=== PATIENT | female | born 1940 | race Caucasian/White ===

== ENCOUNTER 2025-03-26 11:42 | Emergency (ER) | payer MEDICARE ==
--- NOTE | 2025-03-26 12:19 | ED ---
General Adult HPI - General Chief complaint: Shortness of Breath Stated complaint: SOB Time Seen by Provider: 03/26/25 12:00 Source: patient, RN notes reviewed, old records reviewed Mode of arrival: ambulatory Limitations: no limitations - History of Present Illness Initial comments: This is an 85-year-old female who presents to the emergency department stating she has been coughing for 10 days. Patient states only thing she coughs up is clear fluid. Patient denies shortness of breath patient denies chest pain. Patient denies any recent fever. Patient states on the sixth she went to urgent care and they gave her Zithromax steroids and an albuterol inhaler and then after that she was given a different antibiotic I believe doxycycline. Patient states she continues to cough and she came in today because of the cough. Patient denies any palpitations. Patient has no sharp chest pain. Patient is not short of breath. - Related Data Previous Rx's Medication Instructions Recorded Benzonatate [Tessalon Perle] 200 mg PO Q8H #21 cap 03/26/25 Allergies Allergy/AdvReac Type Severity Reaction Status Date / Time celecoxib [From Celebrex] Allergy Rash/Hives Verified 03/26/25 12:02 nitrofurantoin Allergy Rapid Verified 03/26/25 12:02 [From Macrobid] Heart Rate [id number]-[id number]-AjL Reductase Allergy Unknown Verified 03/26/25 12:02 Inhibitor Review of Systems ROS Statement: Those systems with pertinent positive or pertinent negative responses have been documented in the HPI. ROS Other: All systems not noted in ROS Statement are negative. Past Medical History Past Medical History: GERD/Reflux, Hypertension Past Surgical History: Appendectomy, Bladder Surgery, Hysterectomy, Joint Replacement, Orthopedic Surgery, Tonsillectomy Past Psychological History: No Psychological Hx Reported Smoking Status: Never smoker Past Alcohol Use History: Rare Past Drug Use History: None Reported General Exam - General Exam Comments Initial Comments: GENERAL: Patient is well-developed and well-nourished. Patient is nontoxic and well- hydrated and is in no acute distress. ENT: Neck is soft and supple. No significant lymphadenopathy is noted. Oropharynx is clear. Moist mucous membranes. Neck has full range of motion without eliciting any pain. EYES: The sclera were anicteric and conjunctiva were pink and moist. Extraocular movements were intact and pupils were equal round and reactive to light. Eyelids were unremarkable. PULMONARY: Crackles bilateral bases left worse than right CARDIOVASCULAR: There is a regular rate and rhythm without any murmurs gallops or rubs. ABDOMEN: Soft and nontender with normal bowel sounds. No palpable organomegaly was noted. There is no palpable pulsatile mass. SKIN: Skin is clear with no lesions or rashes and otherwise unremarkable. NEUROLOGIC: Patient is alert and oriented x3. Cranial nerves II through XII are grossly intact. Motor and sensory are also intact. Normal speech, volume and content. Symmetrical smile. MUSCULOSKELETAL: Normal extremities with adequate strength and full range of motion. No lower extremity swelling or edema. No calf tenderness. LYMPHATICS: No significant lymphadenopathy is noted PSYCHIATRIC: Normal psychiatric evaluation. Limitations: no limitations Course Vital Signs 03/26/25 03/26/25 11:54 12:16 Temperature 98.4 F Pulse Rate 80 Respiratory 22 20 Rate Blood Pressure 120/69 O2 Sat by Pulse 98 Oximetry Medical Decision Making - Medical Decision Making Was pt. sent in by a medical professional or institution (, PA, SKIP TRACER, urgent care, hospital, or shelter...) When possible be specific @ -No Did you speak to anyone other than the patient for history (EMS, parent, family, police, friend...)? What history was obtained from this source @ -No Did you review nursing and triage notes (agree or disagree)? Why? @ -I reviewed and agree with nursing and triage notes Were old charts reviewed (outside hosp., previous admission, EMS record, old EKG, old radiological studies, urgent care reports/EKG's, shelter records)? Report findings @ -No old charts were reviewed Differential Diagnosis? @ -RSV, influenza A, influenza B, COVID, pneumonia, bronchitis, this is not an all-inclusive list EKG interpreted by me (3pts min.). @ -As above X-rays interpreted by me (1pt min.). @ -Chest x-ray shows no acute abnormality CT interpreted by me (1pt min.). @ -None done U/S interpreted by me (1pt. min.). @ -None done What testing was considered but not performed or refused? (CT, X-rays, U/S, labs)? Why? @ -None What meds were considered but not given or refused? Why? @ -None Did you discuss the management of the patient with other professionals (professionals i.e. , PA, SKIP TRACER, lab, RT, psych nurse, social service manager, water and fire technician, teacher, executive officer special warfare team, case coordinator)? Give summary @ -No Was smoking cessation discussed for >3mins.? @ -No Was critical care preformed (if so, how long)? @ -No Were there social determinants of health that impacted care today? How? (Homelessness, low income, unemployed, alcoholism, drug addiction, transportation, low edu. Level, literacy, decrease access to med. care, intermediate, rehab)? @ -No Was there de-escalation of care discussed even if they declined (Discuss DNR or withdrawal of care, Hospice)? DNR status @ -No What co-morbidities impacted this encounter? (DM, HTN, Smoking, COPD, CAD, Cancer, CVA, ARF, Chemo, Hep., AIDS, mental health diagnosis, sleep apnea, morbid obesity)? @ -None Was patient admitted / discharged? Hospital course, mention meds given and route, prescriptions, significant lab abnormalities, going to OR and other pertinent info. @ -Patient was in no distress throughout the ED course. Patient chest x-ray showed no acute dramality. Patient already been on 2 courses of antibiotics and already had a viral swab at another facility so I did not repeat the viral swab. Undiagnosed new problem with uncertain prognosis? @ -No Drug Therapy requiring intensive monitoring for toxicity (Heparin, Nitro, Insulin, Cardizem)? @ -No Were any procedures done? @ -No Diagnosis/symptom? @ -URI Acute, or Chronic, or Acute on Chronic? @ -Acute Uncomplicated (without systemic symptoms) or Complicated (systemic symptoms)? @ -Uncomplicated Side effects of treatment? @ -No Exacerbation, Progression, or Severe Exacerbation? @ -No Poses a threat to life or bodily function? How? (Chest pain, [place], [place], pneumonia, PE, COPD, DKA, ARF, appy, cholecystitis, CVA, Diverticulitis, Homicidal, Suicidal, threat to staff... and all critical care pts) @ -No Disposition Clinical Impression: Respiratory infection Disposition: HOME SELF-CARE Instructions (If sedation given, give patient instructions): Upper Respiratory Infection (ED) Prescriptions: Benzonatate [Tessalon Perle] 200 mg PO Q8H #21 cap Is patient prescribed a controlled substance at d/c from ED?: No Referrals: Nikky Mathur MD [Primary Care Provider] - 1-2 days Time of Disposition: 13:26
--- NOTE | 2025-03-26 13:13 | XR ---
EXAMINATION TYPE: XR chest 2V DATE OF EXAM: 03/26/2025 12:35 PM COMPARISON: None CLINICAL INDICATION: Female, 85 years old with history of Difficulty breathing , shortness of breath TECHNIQUE: PA and lateral views FINDINGS: The heart is upper limits of normal in size. Aorta and pulmonary vasculature within normal limits. Mi ld interstitial prominence in a chronic appearance. No consolidation or pleural effusion. IMPRESSION: Chronic appearing changes. No acute process seen. [facility], , 03/26/2025 1:11 PM
[2025-03-26 13:53] VITALS: BP 135/78; PULSE 78; RESP 18; TEMP 97.8
== END 2025-03-26 13:52 | disposition home or self-care (01) ==
LOC: EC 11:42
DX: J98.8 Other specified respiratory disorders (principal); Z88.1 Allergy status to other antibiotic agents; Z88.6 Allergy status to analgesic agent; Z88.8 Allergy status to other drugs, medicaments and biological substances
CPT/HCPCS: 71046; 99284